=== PATIENT | male | born 1980 | race Caucasian/White ===

== ENCOUNTER 2016-08-21 18:04 | Emergency (ER) | payer MEDICAID, OTHER ==
[2016-08-21 18:12] VITALS: TEMP 98.3
[2016-08-21] MEDS ORDERED: HYDROcodone/APAP 5-325MG 1 EACH TAB PO STA (18:28)
[2016-08-21] MEDS ORDERED: CEPHALEXIN 500MG STARTER PACK 4 CAP BTL PO STA (18:28)
[2016-08-21] MEDS ORDERED: MUPIROCIN 2% OINT 22 GM TUBE TOPICAL SCH (18:30)
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
--- NOTE | 2016-08-21 18:56 | XR ---
EXAMINATION TYPE: XR tibia fibula RT DATE OF EXAM: 08/21/2016 COMPARISON: NONE HISTORY: Pain TECHNIQUE: 3 views FINDINGS: I see no fracture nor dislocation. Knee joint and ankle joint appear intact. IMPRESSION: Negative right tibia and fibula exam.
[2016-08-21 20:18] VITALS: BP 120/71; PULSE 71; RESP 16
--- NOTE | 2016-08-21 21:04 | XR ---
EXAMINATION TYPE: XR foot complete RT DATE OF EXAM: 08/21/2016 COMPARISON: NONE HISTORY: Pain and swelling TECHNIQUE: 3 views FINDINGS: I see no fracture nor dislocation. Metatarsals appear intact. Joint spaces are normal. IMPRESSION: Normal right foot.
== END 2016-08-21 20:17 | disposition home or self-care (01) ==
LOC: EC 18:04
DX: S70.12XA Contusion of left thigh, initial encounter (principal); S40.211A Abrasion of right shoulder, initial encounter; S80.811A Abrasion, right lower leg, initial encounter; B99.9 Unspecified infectious disease; S92.514A Nondisplaced fracture of proximal phalanx of right lesser toe(s), initial encounter for closed fracture; F17.200 Nicotine dependence, unspecified, uncomplicated; V18.4XXA Pedal cycle driver injured in noncollision transport accident in traffic accident, initial encounter
CPT/HCPCS: 99284

== ENCOUNTER 2020-04-06 19:24 | Inpatient (IN) | payer MEDICAID, OTHER ==
[2020-04-06] MEDS ORDERED: DIVALPROEX 500 MG TABLET.DR PO STA (21:10)
[2020-04-06] MEDS ORDERED: SODIUM CHLORIDE 0.9% 1,000 ML IV STA ×2 (21:10→23:15)
[2020-04-06 21:41] LABS: Basophils # (A) 0.1 k/uL (0-0.2); Basophils % (A) 1 %; Eosinophils # (A) 0.1 k/uL (0-0.7); Eosinophils % (A) 2 %; HCT 43.6 % (39.0-53.0); Lymphocytes # (A) 1.4 k/uL (1.0-4.8); Lymphocytes % (A) 24 %; MCH 27.8 pg (25.0-35.0); MCHC 32.2 g/dL (31.0-37.0); MCV 86.1 fL (80.0-100.0); Mean Platelet Volume 8.1; Monocytes # (A) 0.3 k/uL (0-1.0); Monocytes % (A) 6 %; Neutrophils # (A) 3.8 k/uL (1.3-7.7); Neutrophils % (A) 66 %; Platelet Count 246 k/uL (150-450); RBC 5.06 m/uL (4.30-5.90); RDW 15.1 % (11.5-15.5); WBC 5.7 k/uL (3.8-10.6)
[2020-04-06 21:47] LABS: Glucose,Whole Blood 83 mg/dL (75-99)
[2020-04-06 21:51] LABS: ALT 88 U/L (4-49); AST 79 U/L (17-59); African American GFR (CKD) >90 (>60 ml/min/1.73 sqM); Albumin 4.2 g/dL (3.5-5.0); Alkaline Phosphatase 95 U/L (38-126); Anion Gap 11 mmol/L; Blood Urea Nitrogen 14 mg/dL (9-20); Calcium 9.8 mg/dL (8.4-10.2); Carbon Dioxide 24 mmol/L (22-30); Chloride 107 mmol/L (98-107); Glucose 95 mg/dL (74-99); Non-African American GFR(CKD) >90 (>60 ml/min/1.73 sqM); Potassium 4.6 mmol/L (3.5-5.1); Sodium 142 mmol/L (137-145); Total Bilirubin 0.3 mg/dL (0.2-1.3); Total Protein 6.9 g/dL (6.3-8.2)
--- NOTE | 2020-04-06 21:53 | XR ---
Result: Clinical History: Pain status post fall. Comparison: None available. Technique: 3 views of the left shoulder. Findings: The bone mineralization is appropriate for age. No acute fracture or dislocation is seen. The acromioclavicular and glenohumeral joints are preserve d . The humeral head is well-seated in the glenoid. The visualized lung is clear. Impression: No acute osseous abnormality.
[2020-04-06 21:56] LABS: Valproic Acid (Depakene) <10.0 ug/mL
[2020-04-06 22:03] LABS: Alcohol 250 mg/dL
[2020-04-06] MEDS ORDERED: ONDANSETRON 4 MG/2 ML VIAL IVP PRN (22:55)
[2020-04-06] MEDS ORDERED: NALOXONE 0.4 MG/ML 1 ML VIAL IV PRN (22:55)
[2020-04-06] MEDS ORDERED: THIAMINE 100 MG/ML 2 ML VIAL IM STA (22:57)
[2020-04-06] MEDS ORDERED: LORazepam 2 MG/ML INJ IV PRN ×2 (22:57)
[2020-04-06] MEDS ORDERED: SODIUM CHLORIDE 0.9% 1,000 ML with MVI, ADULT NO.4 WITH VIT K 10 ML, THIAMINE 100 MG, F... IV ONE ×4 (22:57)
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
[2020-04-06] MEDS ORDERED: DIVALPROEX 250 MG TABLET.DR PO SCH (23:15)
[2020-04-06] MEDS: THIAMINE 100 MG TAB PO SCH (23:17)
--- NOTE | 2020-04-06 23:22 | P.HPIM ---
History of Present Illness H&P Date: 04/06/20 Chief Complaint: Breakthrough seizure 39-year-old male with alcoholism, seizure disorder Patient reports that he has recently moved back to [place] about 3 days ago however he left his seizure medications in [place] where he was visiting for the past 8 months. Since then he has been without medications he doesn't have a doctor here to get any refills. He started having breakthrough seizures couple days ago however he was just ignoring it. He reports that he had a cut in his left thumb base during seizure. He described his seizure as a grand mal and petite seizure and claims that normally he gets these seizures asleep Patient admits to daily alcohol intake, consisting of multiple beers every day. Currently denies any headache denies any head injury denies any loss of bowel or bladder control denies any tongue biting. He denies any hallucinations. However he does describe some numbness in his left upper extremity this could be tactile hallucination from early alcohol withdrawal. As he is describing the numbness extending from the lower part of the deltoid muscles all the way wrapping around his left upper extremity to the hand however he denies any weakness and he has full range of motion and function. In the left upper extremity. He has never experienced anything like this before. Otherwise he denies any fevers chills denies any nausea vomiting denies any chest pain or trouble breathing denies any changes in his bowel or urinary habits Blood work in the ED showed elevated alcohol level of 250 and alcoholic hepatitis Review of Systems Pertinent positives as noted in HPI. All other systems were reviewed and are negative Past Medical History Past Medical History: No Reported History History of Any Multi-Drug Resistant Organisms: None Reported Past Surgical History: No Surgical Hx Reported Past Psychological History: No Psychological Hx Reported Smoking Status: Current every day smoker Past Alcohol Use History: Daily Past Drug Use History: None Reported - Past Family History Family Family Medical History: No Reported History Medications and Allergies Home Medications Medication Instructions Recorded Confirmed Type Cetirizine HCl [Zyrtec] 10 mg PO BID 04/06/20 04/06/20 History Cyclobenzaprine [Flexeril] 10 mg PO TID 04/06/20 04/06/20 History Divalproex [Depakote] 250 mg PO BID 04/06/20 04/06/20 History traZODone HCL 100 mg PO HS 04/06/20 04/06/20 History Allergies Allergy/AdvReac Type Severity Reaction Status Date / Time No Known Allergies Allergy Verified 04/06/20 23:08 Physical Exam Vitals: Vital Signs Temp Pulse Resp BP Pulse Ox 04/06/20 21:50 98.3 F 108 H 16 108/71 93 L 04/06/20 20:25 98.6 F 103 H 20 125/84 94 L Intake and Output 04/06/20 04/06/20 04/06/20 06:59 14:59 22:59 Other: Weight 72.575 kg Constitutional: No acute distress, conversant, pleasant Eyes: Anicteric sclerae, moist conjunctiva, Pupils equal round reactive to light ENMT: NC/AT Oropharynx clear, no erythema, or exudates Neck: Supple, FROM, no masses, or JVD No carotid bruits No thyromegaly Lungs: Clear to auscultation Clear to percussion Normal respiratory effort, no accessory muscle use Cardiovascular: Heart regular in rate and rhythm, No murmurs, gallops, or rubs No peripheral edema Abdominal: Soft Nontender, no guarding, rebound or rigidity Abdomen moving with respiration Normoactive bowel sounds No hepatomegaly, No splenomegaly No palpable mass No abdominal wall hernia noted Skin: Small cut 1-1/2 cm in the base of the left thumb none bleeding no erythema no drainage. No swelling no bruising. Normal temperature, tone, texture, turgor No induration No subcutaneous nodules No rash, lesions Extremities: No digital cyanosis No clubbing Pedal pulses intact and symmetrical Radial pulses intact and symmetrical No calf tenderness Psychiatric: Alert and oriented to person, place and time Appropriate affect fair judgement Neuro Muscles Strength 5/5 in all 4 extremities Sensation to light touch grossly present throughout Cranial nerves II-XII grossly intact Patient claims decreased sensation over the left upper extremity extending from below the deltoid muscle wrapping around the left upper extremity all the way to the hand Lymphatics: no palpable cervical or supraclavicular , or inguinal lymph nodes Results CBC & Chem 7: 04/06/20 21:32 04/06/20 21:32 Labs: Abnormal Lab Results - Last 24 Hours (Table) 04/06/20 Range/Units 21:32 AST 79 H (17-59) U/L ALT 88 H (4-49) U/L Serum Alcohol 250 H* mg/dL Assessment and Plan Assessment: Alcohol dependence with acute moderate alcohol intoxication Pending alcohol withdrawal syndrome Breakthrough seizure with history of seizure disorder Tobacco smoking Plan Patient was loaded with Depakote resume Depakote home dose Seizure precautions IV fluid hydration, with normal saline bolus and then maintenance fluid at 1 30 mL per hour Monitor for alcohol withdrawal syndrome, give benzodiazepines per CIWA scale Thiamine twice a day Patient counseled regarding acceptable limits of drinking Monitor liver enzymes Follow-up labs Neurochecks. Every 4 hours Nicotine replacement therapy CODE STATUS: Full code DVT prophylaxis: Mechanical Discussed with: Patient, ER, RN Anticipated length of stay less than [address]: Home A total of 65 minutes was spent on the care of this complex patient more than 50% of the time was spent in counseling and care coordination.
[2020-04-06 23:24] LABS: Appearance,Urine Clear (Clear); Bilirubin,Urine Negative (Negative); Blood,Urine Negative (Negative); Color,Urine Light Yellow; Glucose,Urine (UA) Negative (Negative); Ketones,Urine Negative (Negative); Leukocyte Esterase,Urine Negative (Negative); Nitrite,Urine Negative (Negative); PH, Urine 5.5 (5.0-8.0); Protein,Urine Negative (Negative); Specific Gravity,Urine 1.015 (1.001-1.035); Urobilinogen,Urine <2.0 mg/dL (<2.0)
[2020-04-06] MEDS: traZODone HCL 100 MG TAB PO SCH (23:35)
[2020-04-06 23:40] LABS: Amphetamine Screen,Urine Not Detected (NotDetected); Barbiturate Screen,Urine Not Detected (NotDetected); Benzodiazepines Screen,Urine Not Detected (NotDetected); Cocaine Screen,Urine Not Detected (NotDetected); Methadone Screen, Urine Not Detected (NotDetected); Opiate Screen,Urine Not Detected (NotDetected); Oxycodone Screen, Urine Not Detected (NotDetected); Phencyclidine Screen,Urine Not Detected (NotDetected); Tricyclic Antidepressant,Urine Not Detected (NotDetected); Urn Cannabinoid Scrn Detected (NotDetected)
[2020-04-07] MEDS: THIAMINE 100 MG TAB PO SCH ×2 (09:32→16:42)
[2020-04-07] MEDS: CYCLOBENZAPRINE 10 MG TAB PO SCH ×3 (09:32→20:44)
[2020-04-07] MEDS: DIVALPROEX 250 MG TABLET.DR PO SCH ×2 (09:33→20:43)
[2020-04-07] MEDS: HEPARIN SODIUM,PORCINE 5,000 UNIT/ML 1 ML VIAL SQ SCH ×3 (09:33→20:42)
[2020-04-07] MEDS ORDERED: KETOROLAC 15 MG/ML 1 ML VIAL IVP STA (10:35)
[2020-04-07] MEDS ORDERED: LORazepam 2 MG/ML INJ IV PRN (14:57)
--- NOTE | 2020-04-07 15:00 | P.PN ---
Subjective Progress Note Date: 04/07/20 Principal diagnosis: Seizures Hospital course: Patient is a 39-year-old male with a past medical history of EtOH abuse and seizure disorder. He presented to [facility] with reports of recurrent seizures. Patient reports that he was diagnosed with epilepsy as a child and has been on seizure medication since he can remember and is currently prescribed to take Depakote and trazodone. Patient reports he went to [facility] to visit family and attended a drug and alcohol rehabilitation program. But when he returned to [place] last Monday (04/03/20), he realized that he left his medication in [place] or lost it somewhere along the way. Patient states that he does not have a neurologist and therfore was unable to get his medications refilled. Patient reports he began having recurrent breakthrough seizures. Patient also reports to significant alcohol use over the past few days and reports that he has a long-standing history of alcohol abuse drinking greater than 1 pint of vodka and 72 ounces of beer daily for the past 20 years. Patient reports last drink yesterday afternoon. Serum alcohol levels upon admission were 250. Other laboratory findings include: CBC and BMP unremarkable, Liver profile revealed transaminitis with elevated AST of 79 and elevated ALP of 88, UDS positive for marijuana. Physical exam: Patient was seen and fully evaluated at the bedside this morning. Patient reports pain in his back and throughout his body secondary to recurrent activity. Patient reports back pain because he believes he hit his back while having his last seizure. Patient denies having any headache, lightheadedness, dizziness, changes in his vision or hearing, dysphasia, changes in her difficulties with speech, chest pain or palpitations, shortness of breath, abdominal pain, nausea, vomiting, experiencing any involuntary loss of bowel or bladder, or having any numbness/tingling/weakness in extremities. General: non toxic, no distress, appears at stated age, disheveled appearance Derm: warm, dry Head: atraumatic, normocephalic, symmetric Eyes: pupils PERRLA. EOMI, no lid lag, anicteric sclera Mouth: No lip lesions, no tongue lesions. Mucus membranes moist. No evidence of oral trauma obtained during reported seizure activity. Cardiovascular: S1S2 normal with regular rate and rhythm. No murmur, positive posterior tibial pulses bilaterally. Lungs: Respirations even, regular, and unlabored on room air. Lungs CTA bilaterally, No wheezes, rhonchi, or rales noted. No accessory muscle usage. Abdominal: Soft, nontender to palpation, no guarding, no appreciable organomegaly Ext: no gross muscle atrophy, no edema, no contractures Neuro: GCS 15. Speech clear. CN II-XII grossly intact, no focal neuro deficits Psych: Alert, oriented, appropriate affect Assessment and Plan of Care: Seizures -Neurology consulted, appreciate further recommendations. -Continue Depakote and trazodone as previously prescribed. -Seizure precautions, aspiration precautions, and fall precautions in place. -Ativan as needed for active seizure activity. Alcohol abuse with intoxication -[facility] protocol with symptom triggered medication management using Ativan. -Telemetry monitoring -Seizure precautions, fall precautions, and aspiration precautions in place. -Continued hydration with IV fluids. -Thiamine 100 mg twice daily. -Patient declined having social work consult stating he does not want to partake in any rehabilitation programs at this time. CODE STATUS: Full code DVT prophylaxis: heparin Discussed with: patient and RN Anticipated discharge date: clinical course to determine Anticipated discharge place: home A total of 35 minutes was spent on the care of this complex patient more than 50% of the time was spent in counseling and care coordination. Objective - Vital Signs Vital signs: Vital Signs Temp 98.1 F 04/07/20 08:40 Pulse 75 04/07/20 08:40 Resp 16 04/07/20 08:40 BP 129/79 04/07/20 08:40 Pulse Ox 97 04/07/20 08:40 Intake & Output 04/06/20 04/07/20 04/07/20 18:59 06:59 18:59 Weight 72.575 kg 79.832 kg Other: # Voids 1 - Labs CBC & Chem 7: 04/06/20 21:32 04/06/20 21:32 Labs: Abnormal Lab Results - Last 24 Hours (Table) 04/06/20 04/06/20 Range/Units 21:32 22:56 AST 79 H (17-59) U/L ALT 88 H (4-49) U/L U Marijuana (THC) Screen Detected H (NotDetected) Serum Alcohol 250 H* mg/dL
[2020-04-07] MEDS: HYDROcodone/APAP 5-325MG 1 EACH TAB PO PRN ×2 (17:06→20:43)
[2020-04-07] MEDS: traZODone HCL 100 MG TAB PO SCH (20:43)
[2020-04-07] MEDS ORDERED: traZODone HCL 100 MG TAB PO SCH (21:00)
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
[2020-04-08] MEDS: HYDROcodone/APAP 5-325MG 1 EACH TAB PO PRN ×2 (01:22→17:50)
[2020-04-08] MEDS: LORazepam 2 MG/ML INJ IV PRN ×3 (01:22→05:01)
[2020-04-08] MEDS: THIAMINE 100 MG TAB PO SCH ×2 (07:58→16:47)
[2020-04-08] MEDS: HEPARIN SODIUM,PORCINE 5,000 UNIT/ML 1 ML VIAL SQ SCH ×2 (08:49→20:38)
[2020-04-08] MEDS: DIVALPROEX 250 MG TABLET.DR PO SCH ×2 (08:49→20:39)
[2020-04-08] MEDS: CYCLOBENZAPRINE 10 MG TAB PO SCH ×3 (08:49→20:39)
[2020-04-08 09:16] LABS: HCT 43.3 % (39.6-50.0); HGB 13.9 g/dL (13.0-17.0); MCH 28.2 pg (27.0-32.0); MCHC 32.1 g/dL (32.0-37.0); MCV 87.8 fL (80.0-97.0); Mean Platelet Volume 11.3 fL (9.5-12.2); Platelet Count 212 X 10*3/uL (140-440); RBC 4.93 X 10*6/uL (4.40-5.60); RDW 16.9 % (11.5-14.5); WBC 5.54 X 10*3/uL (4.50-10.00)
[2020-04-08 09:40] LABS: African American GFR (CKD) 129.5 (60.0-200.0); Albumin 3.7 g/dL (3.80-4.90); Albumin/Globulin Ratio 2.06 (1.60-3.17); Anion Gap 5.6 mmol/L (4.00-12.00); BUN/Creat Ratio 13.75 Ratio (12.00-20.00); Calcium 8.4 mg/dL (8.7-10.3); Carbon Dioxide 23.4 mmol/L (21.6-31.8); Globulin 1.8 g/dL (1.6-3.3); Magnesium 1.8 mg/dL (1.5-2.4); Non-African American GFR(CKD) 111.7 (60.0-200.0); Potassium 4.1 mmol/L (3.5-5.5); Total Bilirubin 0.6 mg/dL (0.2-1.2); Total Protein 5.5 g/dL (6.2-8.2)
--- NOTE | 2020-04-08 10:24 | P.PN ---
Subjective Progress Note Date: 04/08/20 Principal diagnosis: break through seizures Patient is a 39-year-old male with alcoholism, seizure disorder, and tobacco abuse who presented to the hospital after reported break through seizures. In the ER he underwent an extensive evaluation. On arrival he was tachycardic with a pulse of 103. Laboratory analysis showed an AST of 79 and ALT of 88. He had reportedly missed 4 days worth of his seizure medications, he had been in [place] attending a substance abuse program and on his return to [place] had misplaced his valproic acid, he did not have a PCP to refill this prescription. His valproic acid level in the ER was less than 10. His serum alcohol was noted to be at 250. His urine drug screen came back positive for marijuana. He was admitted and given an oral load of Depakote. Neurology was consulted who recommended continuing his Depakote. He was started on a CIWA, thiamine, and folic acid supplementation. His Ativan needs increased overnight on 04/07. Patient seen and examined at bedside. He reports he continues to have some back pain. He thinks he had a "seizure" last night will he was sleeping before the nurses came in because he was having neck spasms. Initially told the nurses this occurred at 1:30 AM however he told me this occurred near 7 AM. He reports having nausea, headache, and feeling anxious. We discussed that he will likely be discharged home tomorrow pending clearance from neurology. General: non toxic, no distress, appears at stated age, disheveled Derm: warm, dry Head: atraumatic, normocephalic, symmetric Eyes: EOMI, no lid lag, anicteric sclera Mouth: no lip lesion, mucus membranes moist Cardiovascular: S1S2 reg, no murmur, positive posterior tibial pulse bilateral, Lungs: Coarse breath sounds bilateral bilateral, no rhonchi, no rales , no accessory muscle use Abdominal: soft, nontender to palpation, no guarding, no appreciable organomegaly Ext: no gross muscle atrophy, no edema, no contractures Neuro: CN II-XI grossly intact, no focal neuro deficits Psych: Alert, oriented, appropriate affect Breakthrough seizures with history of epilepsy -Neurology recommendations appreciated -Continue with Depakote -Continue with seizure precautions Alcohol withdrawal with alcohol intoxication on arrival -Continue with CIWA, thiamine, folic acid -Supportive care -Patient is not interested in rehab at this point in time Back pain -Continue with [place] but decreased every 6 hours -Continue with home Flexeril -We'll not be discharged with any narcotics Tobacco abuse -Cessation Transaminitis, improving -Likely secondary to alcohol intoxication -Outpatient follow-up DVT prophylaxis: SCDs Discussed with: Patient, nursing Anticipated discharge: In a.m. Anticipated discharge place: Home A total of 35 minutes was spent on the care of this complex patient more than 50% of the time was spent in counseling and care coordination. Objective - Vital Signs Vital signs: Vital Signs Temp 97.6 F 04/08/20 07:00 Pulse 62 04/08/20 07:00 Resp 16 04/08/20 07:00 BP 119/74 04/08/20 07:00 Pulse Ox 98 04/08/20 07:00 Intake & Output 04/07/20 04/08/20 04/08/20 18:59 06:59 18:59 Intake Total 622 760 222 Balance 622 760 222 Weight 79.832 kg Intake: Oral 622 760 222 Other: Voiding Method Toilet Toilet # Voids 1 3 # Bowel Movements 1 - Labs CBC & Chem 7: 04/08/20 05:07 04/08/20 05:07 Labs: Abnormal Lab Results - Last 24 Hours (Table) 04/08/20 04/08/20 Range/Units 05:07 05:07 RDW 16.9 H (11.5-14.5) % Chloride 111 H (96-109) mmol/L Calcium 8.4 L (8.7-10.3) mg/dL AST 45 H (14-35) U/L ALT 53 H (10-49) U/L Total Protein 5.5 L (6.2-8.2) g/dL Albumin 3.70 L (3.80-4.90) g/dL
[2020-04-08] MEDS: traZODone HCL 100 MG TAB PO SCH (20:40)
[2020-04-09] MEDS: HYDROcodone/APAP 5-325MG 1 EACH TAB PO PRN ×2 (01:29→08:33)
[2020-04-09 08:22] VITALS: BP 139/81; PULSE 85; RESP 18; TEMP 97.8
[2020-04-09] MEDS: DIVALPROEX 250 MG TABLET.DR PO SCH (08:25)
[2020-04-09] MEDS: CYCLOBENZAPRINE 10 MG TAB PO SCH (08:25)
[2020-04-09] MEDS: THIAMINE 100 MG TAB PO SCH (08:25)
[2020-04-09] MEDS: HEPARIN SODIUM,PORCINE 5,000 UNIT/ML 1 ML VIAL SQ SCH (08:26)
[2020-04-09] MEDS ORDERED: FOLIC ACID 1 MG TAB PO SCH (09:00)
--- NOTE | 2020-04-09 14:03 | P.DS ---
Providers Date of admission: 04/07/20 11:51 Expected date of discharge: 04/09/20 Attending physician: Jama Rae MD Consults: 04/07/20 08:56 Consult Physician Urgent Consulting Provider: Oksana Young Consult Reason/Comments: seizures Do you want consulting provider notified?: Yes, Notify in am Primary care physician: Stated None Hospital Course: Discharge Diagnosis: Break through seizure with known history of epilepsy Alcohol withdrawal alcohol intoxication on admission Traumatic brain injury Back pain secondary to falls Tobacco abuse Transaminitis Hospital Course: Patient is a 39-year-old male with alcoholism, seizure disorder, and tobacco abuse who presented to the hospital after reported break through seizures. In the ER he underwent an extensive evaluation. On arrival he was tachycardic with a pulse of 103. Laboratory analysis showed an AST of 79 and ALT of 88. He had reportedly missed 4 days worth of his seizure medications, he had been in [place] attending a substance abuse program and on his return to [place] had misplaced his valproic acid, he did not have a PCP to refill this prescription. His valproic acid level in the ER was less than 10. His serum alcohol was noted to be at 250. His urine drug screen came back positive for marijuana. He was admitted and given an oral load of Depakote. Neurology was consulted who recommended continuing his Depakote. He was started on a CIWA, thiamine, and folic acid supplementation. His Ativan needs increased overnight on 04/07 and then began taking increasing and 04/08. He did not require any Ativan for greater than 24 hours. He had no recurrent seizure activity. He was determined stable for discharge home. His trazodone and Depakote were refilled for 30 days. His Flexeril throat felt for 7 days. He is also given a new prescription for Motrin. He will follow[facility]up [facility] regarding his Medicaid insurance and will follow up with Dr. Cordon for neurology. Patient seen and examined at bedside. Patient denies any additional seizures. He continues to have some back pain. We discussed that he will be discharged home with [place] and to continue his Flexeril. He is worried about his [place] insurance. I have instructed him to follow-up with [facility] as they typically take Medicaid. He was also given Dr. Cordon number for neurology. Vital signs reviewed and stable. General: non toxic, no distress, appears at stated age Derm: warm, dry Head: atraumatic, normocephalic, symmetric Eyes: EOMI, no lid lag, anicteric sclera Mouth: no lip lesion, mucus membranes moist Cardiovascular: S1S2 reg, no murmur, positive posterior tibial pulse bilateral, Lungs: CTA bilateral, no rhonchi, no rales , no accessory muscle use Abdominal: soft, nontender to palpation, no guarding, no appreciable organomegaly Ext: no gross muscle atrophy, no edema, no contractures Neuro: CN II-XI grossly intact, no focal neuro deficits Psych: Alert, oriented, appropriate affect A total of 35 minutes of time were spent preparing this complex discharge summary . Patient Condition at Discharge: Stable Plan - Discharge Summary Discharge Rx Participant: No New Discharge Prescriptions: New Ibuprofen [Motrin] 800 mg PO Q8H PRN #30 tab PRN Reason: Pain Continue traZODone HCL 100 mg PO HS Divalproex [Depakote] 250 mg PO BID #60 tab Cyclobenzaprine [Flexeril] 10 mg PO TID #21 tab Changed Cetirizine HCl [Zyrtec] 10 mg PO DAILY #30 tab Discharge Medication List traZODone HCL 100 mg PO HS 04/06/20 [History] Cetirizine HCl [Zyrtec] 10 mg PO DAILY #30 tab 04/09/20 [Rx] Cyclobenzaprine [Flexeril] 10 mg PO TID #21 tab 04/09/20 [Rx] Divalproex [Depakote] 250 mg PO BID #60 tab 04/09/20 [Rx] Ibuprofen [Motrin] 800 mg PO Q8H PRN #30 tab 04/09/20 [Rx] Follow up Appointment(s)/Referral(s): [facility] [REFERRING] - As Needed Feroz Wylie MD [REFERRING] - 2 Weeks [facility] [NON-STAFF] - 1 Week Activity/Diet/Wound Care/Special Instructions: Activity: as tolerated Diet: regular Special Instructions: no driving for 6 months Discharge Disposition: HOME SELF-CARE
== END 2020-04-09 09:39 | disposition home or self-care (01) | DRG 101 ==
LOC: EC 19:24 → 6NMEDSUR 22:46 → OBSVTOIN 04-07 11:51
PROVIDERS: ADMIT Internal Medicine; ATTEND Internal Medicine
DX: G40.509 Epileptic seizures related to external causes, not intractable, without status epilepticus (principal); F10.239 Alcohol dependence with withdrawal, unspecified; F10.229 Alcohol dependence with intoxication, unspecified; F17.210 Nicotine dependence, cigarettes, uncomplicated; K70.10 Alcoholic hepatitis without ascites; S06.9X9S Unspecified intracranial injury with loss of consciousness of unspecified duration, sequela; Y90.8 Blood alcohol level of 240 mg/100 ml or more; Z79.899 Other long term (current) drug therapy; V89.2XXS Person injured in unspecified motor-vehicle accident, traffic, sequela; Z20.822 Contact with and (suspected) exposure to COVID-19; Z91.81 History of falling; M54.9 Dorsalgia, unspecified; R74.01 Elevation of levels of liver transaminase levels; R00.0 Tachycardia, unspecified
CPT/HCPCS: 36415; 80053; 80164; 80306; 80320; 81003; 83735; 85025; 85027; 87635; 93005; 96361; 96365; 96366; 99285

== ENCOUNTER 2020-04-15 14:23 | Inpatient (IN) | payer OTHER ==
[2020-04-15] MEDS ORDERED: SODIUM CHLORIDE 0.9% 1,000 ML IV ONE ×2 (14:34→15:42)
[2020-04-15] MEDS ORDERED: SODIUM CHLORIDE 0.9% 500 ML 500 ML IV ONE (14:34)
[2020-04-15] MEDS ORDERED: LORazepam 2 MG/ML INJ IV STA (14:34)
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
[2020-04-15 14:51] LABS: Basophils # (A) 0.1 k/uL (0-0.2); Basophils % (A) 2 %; Eosinophils # (A) 0.1 k/uL (0-0.7); Eosinophils % (A) 2 %; HCT 43.8 % (39.0-53.0); HGB 14.1 gm/dL (13.0-17.5); Lymphocytes # (A) 1.7 k/uL (1.0-4.8); Lymphocytes % (A) 37 %; MCH 27.5 pg (25.0-35.0); MCHC 32.3 g/dL (31.0-37.0); MCV 85.2 fL (80.0-100.0); Mean Platelet Volume 8.5; Monocytes # (A) 0.4 k/uL (0-1.0); Monocytes % (A) 8 %; Neutrophils # (A) 2.3 k/uL (1.3-7.7); Neutrophils % (A) 49 %; Platelet Count 191 k/uL (150-450); RBC 5.15 m/uL (4.30-5.90); WBC 4.7 k/uL (3.8-10.6)
[2020-04-15] MEDS ORDERED: SODIUM CHLORIDE 0.9% 1,000 ML with MVI, ADULT NO.4 WITH VIT K 10 ML, THIAMINE 100 MG, F... IV ONE ×4 (15:00)
[2020-04-15 15:15] LABS: ALT 60 U/L (4-49); AST 71 U/L (17-59); African American GFR (CKD) >90 (>60 ml/min/1.73 sqM); Albumin 4.2 g/dL (3.5-5.0); Alkaline Phosphatase 83 U/L (38-126); Anion Gap 10 mmol/L; Blood Urea Nitrogen 7 mg/dL (9-20); Calcium 8.5 mg/dL (8.4-10.2); Carbon Dioxide 24 mmol/L (22-30); Chloride 112 mmol/L (98-107); Glucose 140 mg/dL (74-99); Magnesium 1.9 mg/dL (1.6-2.3); Non-African American GFR(CKD) >90 (>60 ml/min/1.73 sqM); Sodium 146 mmol/L (137-145); Total Bilirubin 0.3 mg/dL (0.2-1.3); Total Protein 6.8 g/dL (6.3-8.2)
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
[2020-04-15 15:29] LABS: Alcohol 394 mg/dL
[2020-04-15] MEDS ORDERED: LORazepam 2 MG/ML INJ IV PRN ×2 (15:43)
[2020-04-15] MEDS ORDERED: THIAMINE 100 MG/ML 2 ML VIAL IM STA (15:43)
--- NOTE | 2020-04-15 20:14 | HP ---
HISTORY AND PHYSICAL DATE OF SERVICE: 04/15/2020 CHIEF COMPLAINT: Seizures. HISTORY OF PRESENT ILLNESS: This 39-year-old gentleman with a past medical history of multiple medical problems, including alcohol, seizure disorder, depression and history of significant nicotine dependence, is not being followed by any primary physician in the outpatient setting. The patient apparently was taken to [facility] significantly intoxicated. The patient might have had seizures or pseudoseizures, according to the EMS. The patient is stuporous and unable to give any clear history. The patient is also giving multiple such as he would buy a car; please refer to the ER notes for further details. The patient apparently spent some time in [place] recently. The exact details are unknown at this time. The patient is being monitored closely. The patient is, as mentioned earlier, extremely stuporous and confused, unable to give a coherent history. PAST MEDICAL HISTORY: History of seizure disorder, ETOH, depression, nicotine dependency, THC. HOME MEDICATIONS: Trazodone, Motrin, Depakote, Flexeril, xylocaine. Doses are reviewed. ALLERGIES: NONE. FAMILY HISTORY: No history of heart disease or strokes in the family. SOCIAL HISTORY: Smoking, alcohol, THC. REVIEW OF SYSTEMS: Review of systems could not be taken because of change in mental status. PHYSICAL EXAMINATION: Patient is conscious, stuporous. Pulse 87, blood pressure 165/92, respirations 16, temperature 98.1, pulse ox 96% on room air. HEENT: Conjunctivae normal. NECK: No jugular venous distention. CARDIOVASCULAR SYSTEM: S1, S2 muffled. RESPIRATORY SYSTEM: Breath sounds diminished at the bases. No rhonchi. No crackles. ABDOMEN: Soft, non-tender. No mass palpable. LEGS: No edema. No swelling. NERVOUS SYSTEM: Higher functions as mentioned earlier. Moves all 4 limbs. No focal motor or sensory deficit. Detailed neurologic exam is not possible. Tremulous. SKIN: No ulcer, rash, bleeding. JOINTS: No active deforming arthropathy. LABS: CBC within normal limits. Sodium 146. Other labs are noted. ASSESSMENT: 1. Acute alcohol intoxication. 2. Change in mental status, acute metabolic encephalopathy. 3. Acute delirium tremens, early. 4. Hypernatremia. 5. Dehydration. 6. Elevated AST, ALT; alcoholic hepatitis. 7. History of seizure disorder. 8. History of depression. 9. History of nicotine dependence. 10.History of tetrahydrocannabinol. RECOMMENDATIONS AND DISCUSSION: In this 39-year-old gentleman who presented with multiple complex medical issues, we will monitor the patient closely, continue the current [facility] protocol. I would also recommend basic neurological workup. Neurology and psychiatry consultations also will be obtained. IV fluids. Symptomatic treatment. Seizure precautions. Prognosis guarded because of multiple complex medical issues. Further recommendations to follow. Repeat labs will be ordered. I also recommend that the patient undergo alcohol rehab and close followup with a primary physician. Home medication will be resumed. MMODL / IJN: [id number] / GUALBERTO
[2020-04-15] MEDS ORDERED: IBUPROFEN 800 MG TAB PO PRN (20:41)
[2020-04-15] MEDS: DIVALPROEX 250 MG TABLET.DR PO SCH (21:29)
[2020-04-15] MEDS: traZODone HCL 100 MG TAB PO SCH (21:29)
[2020-04-15] MEDS: CYCLOBENZAPRINE 10 MG TAB PO SCH (21:30)
[2020-04-16] MEDS: CYCLOBENZAPRINE 10 MG TAB PO SCH ×3 (08:49→21:08)
[2020-04-16] MEDS: LORATADINE 10 MG TAB PO SCH (08:49)
[2020-04-16] MEDS: THIAMINE 100 MG TAB PO SCH ×2 (08:49→16:13)
[2020-04-16] MEDS: DIVALPROEX 250 MG TABLET.DR PO SCH ×2 (08:49→21:08)
[2020-04-16] MEDS: LORazepam 2 MG/ML INJ IV PRN ×3 (09:03→16:13)
[2020-04-16] MEDS ORDERED: cloNIDine HCL 0.1 MG TAB PO PRN (16:55)
[2020-04-16] MEDS ORDERED: TEMAZEPAM 15 MG CAP PO PRN (16:55)
--- NOTE | 2020-04-16 17:31 | PN ---
PROGRESS NOTE DATE OF SERVICE: 04/16/2020 This is a 39-year-old gentleman who was admitted with acute alcohol intoxication. Also had history of seizures. The patient is being closely monitored at this time. The patient is still tremulous. No chest pain. No palpitations. No fever. Patient is slightly confused. PHYSICAL EXAMINATION: Pulse is 67, blood pressure 141/82, respiration 18, temperature 98.4, pulse ox 98% on room. HEENT: Conjunctivae normal. NECK: No jugular venous distention. HEART: S1, S2 muffled. RESPIRATORY SYSTEM: Breath sounds diminished at the bases. A few scattered rhonchi. ABDOMEN: Soft, nontender. NERVOUS SYSTEM: No focal deficits. LABS: Sodium 146 and AST and ALT are 71 and 60. Alcohol is 394. ASSESSMENT: 1. Acute alcohol intoxication. 2. Change in mental status, acute metabolic encephalopathy. 3. Acute delirium tremens, early. 4. Hypernatremia with dehydration. 5. Increased AST ALT, acute alcoholic hepatitis. 6. History of seizure disorder. 7. History of depression. 8. History of nicotine dependence. 9. History of THC. RECOMMENDATIONS AND DISCUSSION: Continue current management and symptomatic treatment. Otherwise continue with IV fluids repeat. We will also order repeat labs and psychiatric consultation. Guarded prognosis because of multiple complex medical issues. Further recommendations to follow. MMODL / IJN: [id number] /
[2020-04-16] MEDS: SODIUM CHLORIDE 0.9% 1,000 ML IV SCH (17:43)
[2020-04-16 20:40] VITALS: RESP 16
[2020-04-16] MEDS: traZODone HCL 100 MG TAB PO SCH (21:08)
[2020-04-16] MEDS: HEPARIN SODIUM,PORCINE 5,000 UNIT/ML 1 ML VIAL SQ SCH (21:08)
[2020-04-16 22:05] LABS: Appearance,Urine Clear (Clear); Bilirubin,Urine Negative (Negative); Blood,Urine Negative (Negative); Color,Urine Yellow; Glucose,Urine (UA) Negative (Negative); Ketones,Urine Negative (Negative); Leukocyte Esterase,Urine Negative (Negative); Nitrite,Urine Negative (Negative); PH, Urine 6.5 (5.0-8.0); Protein,Urine Negative (Negative); Urobilinogen,Urine <2.0 mg/dL (<2.0)
[2020-04-16] MEDS: HYDROcodone/APAP 5-325MG 1 EACH TAB PO PRN (23:56)
[2020-04-17 04:49] VITALS: BP 138/83; TEMP 98.2
[2020-04-17] MEDS: SODIUM CHLORIDE 0.9% 1,000 ML IV SCH (05:38)
[2020-04-17 06:51] LABS: ALT 42 U/L (4-49); AST 43 U/L (17-59); African American GFR (CKD) >90 (>60 ml/min/1.73 sqM); Albumin 3.4 g/dL (3.5-5.0); Albumin/Globulin Ratio 1.4; Alkaline Phosphatase 82 U/L (38-126); Anion Gap 3 mmol/L; Blood Urea Nitrogen 5 mg/dL (9-20); Calcium 8.8 mg/dL (8.4-10.2); Carbon Dioxide 26 mmol/L (22-30); Chloride 109 mmol/L (98-107); Globulin 2.5 g/dL; Glucose 95 mg/dL (74-99); Non-African American GFR(CKD) >90 (>60 ml/min/1.73 sqM); Sodium 138 mmol/L (137-145); Total Bilirubin 0.6 mg/dL (0.2-1.3); Total Protein 5.9 g/dL (6.3-8.2)
[2020-04-17] MEDS: HEPARIN SODIUM,PORCINE 5,000 UNIT/ML 1 ML VIAL SQ SCH (07:16)
[2020-04-17] MEDS ORDERED: PANTOPRAZOLE 40 MG TABLET PO SCH (07:30)
[2020-04-17] MEDS: THIAMINE 100 MG TAB PO SCH (08:30)
[2020-04-17] MEDS: LORATADINE 10 MG TAB PO SCH (08:30)
[2020-04-17] MEDS: CYCLOBENZAPRINE 10 MG TAB PO SCH (08:30)
[2020-04-17] MEDS: DIVALPROEX 250 MG TABLET.DR PO SCH (08:30)
[2020-04-17] MEDS: HYDROcodone/APAP 5-325MG 1 EACH TAB PO PRN (08:33)
[2020-04-17 08:41] VITALS: PULSE 70
[2020-04-17 08:52] LABS: Basophils # (A) 0.04 X 10*3/uL (0.00-0.10); Basophils % (A) 0.7 %; Eosinophils # (A) 0.08 X 10*3/uL (0.04-0.35); Eosinophils % (A) 1.5 %; HGB 13.6 g/dL (13.0-17.0); Lymphocytes # (A) 1.34 X 10*3/uL (0.90-5.00); Lymphocytes % (A) 24.7 %; MCH 27.9 pg (27.0-32.0); MCHC 31.6 g/dL (32.0-37.0); MCV 88.1 fL (80.0-97.0); Mean Platelet Volume 11.5 fL (9.5-12.2); Monocytes # (A) 0.54 X 10*3/uL (0.20-1.00); Monocytes % (A) 9.9 %; Neutrophils # (A) 3.42 X 10*3/uL (1.80-7.70); Platelet Count 182 X 10*3/uL (140-440); RBC 4.88 X 10*6/uL (4.40-5.60); RDW 15.7 % (11.5-14.5); WBC 5.43 X 10*3/uL (4.50-10.00)
[2020-04-17] MEDS ORDERED: FOLIC ACID 1 MG TAB PO SCH (12:00)
[2020-04-17] MEDS ORDERED: MULTIVITAMINS, THERA 1 EACH TAB PO SCH (12:00)
--- NOTE | 2020-04-17 16:39 | P.DS ---
Providers Date of admission: 04/16/20 12:00 Expected date of discharge: 04/17/20 Attending physician: S[place]rien Consults: 04/16/20 16:56 Consult Physician Routine Consulting Provider: Denilson Diggs Consult Reason/Comments: Depression Do you want consulting provider notified?: Already Contacted Primary care physician: Stated None Hospital Course: Final diagnosis Acute alcohol intoxication Change in mental status, acute metabolic encephalopathy Acute delirium tremens, early Hypernatremia with dehydration Increased AST, ALT, acute alcoholic hepatitis history of seizure disorder History of depression history of nicotine dependence history of THC Discharge disposition Patient is being discharged in a stable condition with guarded prognosis to home. Patient will follow-up with Dr. Schulte in the outpatient setting upon discharge. Patient also instructed to follow-up with community mental health in the outpatient setting. Patient will continue with oral Ativan 1 mg as needed. Total time taken is greater than 35 minutes. Hospital course This is a 39-year-old male who was recently admitted with acute alcohol intoxication and is being closely monitored. Patient does have a history of seizures and was maintained on CIWA protocol. Patient states he is feeling much better and would like to be discharged today. Patient was given a prescription for Ativan 1 mg twice a day and to taper as needed. Patient instructed to avoid all alcohol intake. Patient also instructed to follow-up with community mental health in the outpatient setting for rehab services along with counseling. Patient was provided information to obtain a primary care provider and instructed to follow-up with Dr. Zuleika Schulte upon discharge. Currently no reports of chest pain, shortness of breath, or palpitations. Patient is afebrile. No reports of nausea or vomiting and patient is tolerating diet. Patient will discharged home today. Guarded prognosis. On exam vital signs are stable. Cardio S1, S2 are muffled. Respiratory system shows diminished breath sounds at the bases with no wheezing or rhonchi noted. Abdomen is soft and nontender. Nervous system shows no focal deficits. Please refer to medication reconciliation sheet for a list of medications. Patient Condition at Discharge: Stable Plan - Discharge Summary Discharge Rx Participant: No New Discharge Prescriptions: New LORazepam [Ativan] 1 mg PO TID 3 Days #9 tab Folic Acid 1 mg PO DAILY@1200 30 Days #30 tab Multivitamins, Thera [Multivitamin (formulary)] 1 each PO DAILY@1200 30 Days #30 tab HYDROcodone/APAP 5-325MG [[place] 5-325] 1 each PO Q6HR PRN #10 tab PRN Reason: Pain Thiamine [Vitamin B-1] 100 mg PO BID-W/MEALS 30 Days #60 tab Pantoprazole Sodium [Protonix] 40 mg PO BID 7 Days #14 tablet.dr Renteria traZODone HCL 100 mg PO HS Ibuprofen [Motrin] 800 mg PO Q8H PRN #30 tab PRN Reason: Pain Divalproex [Depakote] 250 mg PO BID #60 tab Cyclobenzaprine [Flexeril] 10 mg PO TID #21 tab Cetirizine HCl [Zyrtec] 10 mg PO DAILY #30 tab Discharge Medication List traZODone HCL 100 mg PO HS 04/06/20 [History] Cetirizine HCl [Zyrtec] 10 mg PO DAILY #30 tab 04/09/20 [Rx] Cyclobenzaprine [Flexeril] 10 mg PO TID #21 tab 04/09/20 [Rx] Divalproex [Depakote] 250 mg PO BID #60 tab 04/09/20 [Rx] Ibuprofen [Motrin] 800 mg PO Q8H PRN #30 tab 04/09/20 [Rx] Folic Acid 1 mg PO DAILY@1200 30 Days #30 tab 04/17/20 [Rx] HYDROcodone/APAP 5-325MG [[place] 5-325] 1 each PO Q6HR PRN #10 tab 04/17/20 [Rx] LORazepam [Ativan] 1 mg PO TID 3 Days #9 tab 04/17/20 [Rx] Multivitamins, Thera [Multivitamin (formulary)] 1 each PO DAILY@1200 30 Days #30 tab 04/17/20 [Rx] Pantoprazole Sodium [Protonix] 40 mg PO BID 7 Days #14 tablet. 04/17/20 [Rx] Thiamine [Vitamin B-1] 100 mg PO BID-W/MEALS 30 Days #60 tab 04/17/20 [Rx] Follow up Appointment(s)/Referral(s): Zuleika Schulte MD [STAFF PHYSICIAN] - 1-2 Days Patient Instructions/Handouts: Alcohol Intoxication (DC), Abuse of Alcohol (DC), Alcohol Withdrawal (DC) Activity/Diet/Wound Care/Special Instructions: Activity Limited until follow-up Follow-up with Dr. Zuleika schulte and establish primary care provider Continue current diet Continue current medications Avoid alcohol intake Discharge Disposition: HOME SELF-CARE
== END 2020-04-17 12:25 | disposition home or self-care (01) | DRG 896 ==
LOC: EC 14:23 → 4SSUR 15:42 → 5NMEDONC 18:36 → OBSVTOIN 04-16 12:00
PROVIDERS: ADMIT Hospitalist; ATTEND Hospitalist
DX: F10.229 Alcohol dependence with intoxication, unspecified (principal); G93.41 Metabolic encephalopathy; E87.0 Hyperosmolality and hypernatremia; F10.231 Alcohol dependence with withdrawal delirium; E86.0 Dehydration; K70.10 Alcoholic hepatitis without ascites; G40.909 Epilepsy, unspecified, not intractable, without status epilepticus; F32.9 Major depressive disorder, single episode, unspecified; F17.210 Nicotine dependence, cigarettes, uncomplicated; Z20.822 Contact with and (suspected) exposure to COVID-19; Y90.8 Blood alcohol level of 240 mg/100 ml or more
CPT/HCPCS: 36415; 80053; 80320; 81003; 83735; 85025; 87635; 96361; 96365; 96375; 99285